=== PATIENT | female | born 1995 | race African-American/Black ===

== ENCOUNTER 2016-07-25 21:19 | Emergency (ER) | payer OTHER ==
[~2016-07-25] VITALS: Ht 157.5 cm; Wt 62.1 kg
[~2016-07-25 21:19] MED LIST: IBUP-1007 PO; NITR100C PO; PREN1TAB58 PO
[2016-07-25 22:24] LABS: BASO # 0.1 x10^3/uL (0.0-0.2); BASO % 1 % (0-3); EOS % 1 % (0-3); HEMATOCRIT 37.4 % (36.0-47.0); HEMOGLOBIN 11.8 g/dL (12.0-15.5); LYMPH # 2.4 x10^3/uL (1.0-4.8); LYMPH % 18 % (24-48); MEAN CORPUSCULAR HEMOGLOBIN 27 pg (25-35); MEAN CORPUSCULAR HGB CONC 32 g/dL (31-37); MEAN CORPUSCULAR VOLUME 86 fL (79-100); MONO % 9 % (0-9); NEUT % 72 % (31-73); PLATELET COUNT 191 x10^3/uL (140-400); RED BLOOD COUNT 4.34 x10^6/uL (3.50-5.40); RED CELL DISTRIBUTION WIDTH 12.8 % (11.5-14.5); WHITE BLOOD COUNT 13.7 x10^3/uL (4.0-11.0)
--- NOTE | 2016-07-25 22:24 | PHYS DOC ---
Past Medical History Past Medical History: Asthma Past Surgical History: No Surgical History Alcohol Use: None Drug Use: None Adult General Chief Complaint Chief Complaint: ABDOMINAL PAIN IN HPI HPI 21-year-old presenting to the emergency department today with abdominal pain and cramping along with vaginal bleeding. She reports being approximately 11 weeks by last menstrual period. she denies the passage of tissue. Onset 24 hours. Location lower abdomen. Moderate nonradiating and associated with vaginal bleeding. Review of systems is negative for chest pain shortness of breath fevers or chills. All other review of systems is negative unless otherwise noted in history of present illness. Review of Systems Review of Systems SEE ABOVE. Current Medications Current Medications Current Medications Medications (Trade) Dose Ordered Sig/Zackery Start Time Stop Time Status Last Admin Dose Admin Acetaminophen/ Hydrocodone Bitart (Lortab 5/325) 2 tab 1X ONCE 07/25/16 22:45 07/25/16 22:46 DC 07/25/16 22:45 2 TAB Allergies Allergies Allergies Coded Allergies Type Severity Reaction Last Updated Verified No Known Drug Allergies 10/03/15 No Physical Exam Physical Exam Constitutional: Well developed, well nourished, no acute distress, non-toxic appearance. HENT: Normocephalic, atraumatic, bilateral external ears normal, oropharynx moist, no oral exudates, nose normal. [] Eyes: PERRLA, EOMI, conjunctiva normal, no discharge. [] Neck: Normal range of motion, no tenderness, supple, no stridor. Cardiovascular:Heart rate regular rhythm, no murmur [] Lungs & Thorax: Bilateral breath sounds clear to auscultation Abdomen: Abdomen is soft and nontender. No rebound tenderness or guarding present. Negative McBurney's point. Negative Hastings sign. Nondistended. Skin: Warm, dry, no erythema, no rash. [] Back: No tenderness, no CVA tenderness. Extremities: No tenderness, no cyanosis, no clubbing, ROM intact, no edema. [] Neurologic: Alert and oriented X 3, normal motor function, normal sensory function, no focal deficits noted. Psychologic: Affect normal, judgement normal, mood normal. [] Current Patient Data Vital Signs Vital Signs Date Time Temp Pulse Resp B/P Pulse Ox O2 Delivery O2 Flow Rate FiO2 07/25/16 23:58 80 18 108/61 98 Room Air 07/25/16 21:30 98.7 98.7 Lab Values Laboratory Tests Test 07/25/16 22:20 07/25/16 23:05 White Blood Count 13.7x10^3/uL (4.0-11.0) H Red Blood Count 4.34x10^6/uL (3.50-5.40) Hemoglobin 11.8g/dL (12.0-15.5) L Hematocrit 37.4% (36.0-47.0) Mean Corpuscular Volume 86fL (79-100) Mean Corpuscular Hemoglobin 27pg (25-35) Mean Corpuscular Hemoglobin Concent 32g/dL (31-37) Red Cell Distribution Width 12.8% (11.5-14.5) Platelet Count 191x10^3/uL (140-400) Neutrophils (%) (Auto) 72% (31-73) Lymphocytes (%) (Auto) 18% (24-48) L Monocytes (%) (Auto) 9% (0-9) Eosinophils (%) (Auto) 1% (0-3) Basophils (%) (Auto) 1% (0-3) Neutrophils # (Auto) 9.8x10^3uL (1.8-7.7) H Lymphocytes # (Auto) 2.4x10^3/uL (1.0-4.8) Monocytes # (Auto) 1.3x10^3/uL (0.0-1.1) H Eosinophils # (Auto) 0.1x10^3/uL (0.0-0.7) Basophils # (Auto) 0.1x10^3/uL (0.0-0.2) Maternal Serum HCG Beta Subunit 5278mIU/mL (0-6) H Sodium Level 142mmol/L (136-145) Potassium Level 3.6mmol/L (3.5-5.1) Chloride Level 105mmol/L (98-107) Carbon Dioxide Level 25mmol/L (21-32) Anion Gap 12 (6-14) Blood Urea Nitrogen 8mg/dL (7-20) Creatinine 0.7mg/dL (0.6-1.0) Estimated GFR (Cockcroft-Gault) 126.6 Glucose Level 93mg/dL (70-99) Calcium Level 9.6mg/dL (8.5-10.1) Total Bilirubin 0.2mg/dL (0.2-1.0) Direct Bilirubin 0.1mg/dL (0.0-0.2) Aspartate Amino Transferase (AST) 20U/L (15-37) Alanine Aminotransferase (ALT) 44U/L (14-59) Alkaline Phosphatase 41U/L (46-116) L Total Protein 7.4g/dL (6.4-8.2) Albumin 3.9g/dL (3.4-5.0) Lipase 67U/L (73-393) L Urine Collection Type Unknown Urine Color Red Urine Clarity Turbid Urine pH 5.0 Urine Specific [place] 1.025 Urine Protein 100mg/dL (NEG-TRACE) Urine Glucose (UA) Negativemg/dL (NEG) Urine Ketones (Stick) 15mg/dL (NEG) Urine Blood Large (NEG) Urine Nitrite Positive (NEG) Urine Bilirubin Moderate (NEG) Urine Urobilinogen Dipstick 1.0mg/dL (0.2 mg/dL) Urine Leukocyte Esterase Moderate (NEG) Urine RBC Tntc/HPF (0-2) Urine WBC 5-10/HPF (0-4) Urine Squamous Epithelial Cells Mod/LPF Urine Amorphous Sediment Present/HPF Urine Bacteria Few/HPF (0-FEW) Urine Mucus Mod/LPF Laboratory Tests 07/25/16 22:20 Laboratory Tests 07/25/16 22:20 EKG EKG [] Radiology/Procedures Radiology/Procedures [] Course & Med Decision Making Course & Med Decision Making Pertinent Labs and Imaging studies reviewed. (See chart for details) [] 21-year-old female presenting with vaginal bleeding and abdominal pain and . Vital signs showed mild tachycardia. Otherwise unremarkable. Blood work obtained an ultrasound obtained. Rh+. The patient was subsequently discharged home to follow up with her group manager over the next 2-3 days for repeat hCG testing and possible repeat ultrasound.. [id number] discharge instructions were given. Dragon Disclaimer Dragon Disclaimer This electronic medical record was generated, in whole or in part, using a voice recognition dictation system. Departure Departure Impression: Primary Impression: Abdominal pain Additional Impression: Vaginal bleeding Disposition: HOME, SELF-CARE Condition: STABLE Referrals: NO PCP (PCP) CECI RUANO Jr, MD Patient Instructions: Vaginal Bleeding During , First Trimester Additional Instructions: Thank you for allowing us to participate in your care today. Followup with your primary care physician in 3 days if your symptoms do not improve. If you do not have a primary care provider you can ask for a list of our primary care providers. Return to the emergency department you have any new or concerning findings. This should be evaluated by the primary care physician and any necessary consulting services for continued management within a few days after discharge. Return to emergency room if you have any new or concerning symptoms including but not limited to fever, chills, nausea, vomiting, intractable pain, any new rashes, chest pain, shortness of air, uncontrolled bleeding, difficulty breathing, and/or vision loss. Problem Qualifiers BHAVESH PETER MD Jul 25, 2016 22:24
[2016-07-25 22:39] LABS: CALCIUM 9.6 mg/dL (8.5-10.1); CREATININE 0.7 mg/dL (0.6-1.0); GFR 126.6; POTASSIUM 3.6 mmol/L (3.5-5.1)
[2016-07-25 22:45] LABS: ALBUMIN 3.9 g/dL (3.4-5.0); DIRECT BILIRUBIN 0.1 mg/dL (0.0-0.2); TOTAL BILIRUBIN 0.2 mg/dL (0.2-1.0); TOTAL PROTEIN 7.4 g/dL (6.4-8.2)
[2016-07-25] MEDS ORDERED: HYDROCODONE/APAP 5/325MG TABLET. PO ONE (22:45)
--- NOTE | 2016-07-25 23:08 | RAD ---
PROCEDURE First trimester OB ultrasound. HISTORY Pelvic pain and vaginal bleeding for 3 days. TECHNIQUE Transabdominal imaging was performed for initial evaluation of the pelvis. Endovaginal imaging was performed for optimal characterization of the endometrium. COMPARISON None. FINDINGS Transabdominal imaging: Uterus measures 9.7 centimeters in length. Sac-like fluid collection is present in the endometrial canal. No convincing yolk sac or embryonic pole is identified. No measurements were made of the sac-like fluid collection. Left ovary measures 2.6 x 2.2 x 2.1 centimeters and is unremarkable. The right ovary measures 2.8 x 3.2 x 2.0 centimeters and demonstrates 1.9 centimeter corpus luteum cyst. Both ovaries are without evidence of torsion as they demonstrate normal vascular flow upon Doppler interrogation. Endovaginal imaging: Uterus measures 10.2 centimeters in length. Sac-like fluid collection is present in the endometrial canal which appears somewhat misshapen. No convincing yolk sac or embryonic pole is identified. The technologist placed measurement on soft tissue appearing structure, although this is thought not definitively to represent from the embryonic pole. No embryonic heart motion is identified, although no confident embryo is seen. No adnexal masses are identified. IMPRESSION 1. There is an irregular sac-like fluid collection present within the endometrial canal. No convincing yolk sac or embryonic pole is identified. No correlative beta HCG levels are available at time of dictation. Consequently, the findings are nonspecific. Findings could represent intrauterine (including abnormal intrauterine ), although ectopic is not excluded. Recommend serial beta HCG levels and pelvic ultrasound as clinically indicated. 2. No evidence of ovarian torsion. Electronically signed by: Shivam Ambriz MD (Jul 25, 2016 23:07:02)
[2016-07-25 23:17] LABS: BILIRUBIN,URINE MODERATE (NEG); GLUCOSE,URINE NEGATIVE (NEG); NITRITE,URINE POSITIVE (NEG); PROTEIN,URINE 100 mg/dL (NEG-TRACE)
[2016-07-25 23:23] LABS: BACTERIA,URINE FEW /HPF (0-FEW); RBC,URINE TNTC /HPF (0-2); SQUAMOUS EPITHELIAL CELL,UR MOD /LPF
[2016-07-26 00:54] VITALS: BP 107/74
== END 2016-07-26 00:57 | disposition home or self-care (01) ==
LOC: ER 21:19
DX: O46.91 Antepartum hemorrhage, unspecified, first trimester (principal); O26.891 Other specified pregnancy related conditions, first trimester; R10.30 Lower abdominal pain, unspecified; J45.909 Unspecified asthma, uncomplicated; Z3A.11 11 weeks gestation of pregnancy
CPT/HCPCS: 36415; 76801; 76817; 80048; 80076; 81001; 83690; 84702; 85027; 86850; 86900; 86901; 87086; 99285-25